=== PATIENT | male | born 2005 | race Caucasian/White ===

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

== ENCOUNTER 2024-08-24 21:47 | Emergency (ER) | payer OTHER, SELFPAY ==
[2024-08-24 21:51] VITALS: BP 130/60; PULSE 92; O2SAT 94
[2024-08-24 22:26] VITALS: BP 101/52; PULSE 79; RESP 18; TEMP 36.7; O2SAT 100; BMI 53.4
== END 2024-08-25 01:32 | disposition left against medical advice (07) ==
PROVIDERS: Emergency Provider Emergency Medicine
DX: R51.9 Headache, unspecified (principal)
CPT/HCPCS: 99281

== ENCOUNTER 2024-10-22 18:28 | Emergency (ER) | payer MEDICAID, SELFPAY ==
--- NOTE | ~2024-10-22 | XR_ITS ---
CLINICAL HISTORY: pain s p slip fall Left knee four views Comparison: None Findings: No acute fracture or dislocation noted. No significant joint effusion identified. No soft tissue foreign body. Impression: No acute bony abnormality This document has been electronically signed by: Krzysztof Petit MD on 10/22/2024 20:18:19
[2024-10-22 19:39] VITALS: BP 116/53; PULSE 72; RESP 18; TEMP 36.2; O2SAT 100; BMI 31.3
--- NOTE | 2024-10-22 19:39 | ED_ITS ---
HPI - Extremity Injury (Lower) General Chief Complaint: Extremity Injury, Lower Stated Complaint: Lt knee injury Related Data Previous Rx's ?Medication ?Instructions ?Recorded amoxicillin 875 mg-potassium 1 tab PO BID 7 days #14 tabs 06/16/23 clavulanate 125 mg tablet ciprofloxacin 0.3 %-dexamethasone 4 drp otic (ears) BID 7 days #7.5 06/16/23 0.1 % ear drops,suspension mL (Ciprodex) ibuprofen 600 mg tablet 600 mg PO Q6H PRN pain #20 tabs 10/23/24 Allergies Allergy/AdvReac Type Severity Reaction Status Date / Time No Known Allergies Allergy Verified 10/23/24 15:19 PMFSH Family History Family History Mother No problems noted. Social History Social History Household Members: Family Advance Directives: No Advance Directives Information Provided: No Do you have a plan to hurt others: No Plan Physical Exam Vital Signs: Vital Signs: Last Vital Signs Temp 97.2 F 10/22/24 19:39 Pulse 72 10/22/24 19:39 Resp 18 10/22/24 19:39 BP 116/53 L 10/22/24 19:39 Pulse Ox 100 10/22/24 19:39 O2 Del Method Room Air 10/22/24 19:39 BMI result Body Mass Index 31.3 Course Course Course Narrative: This is a Rapid Medical Exam performed in triage by Xin Toscano PA-C. Full HPI, ROS and PE to be performed by primary ED provider. 19yo M w/pmhx obesity presenting to the ED c/o L knee pain s/p mechanical slip & fall on black ice [employer]. denies head trauma or LOC PE: R knee w/diffuse ttp. limited full extension 2/2 pain. NV intact distally Plan: XRs Discharge Plan Discharge Clinical Impression: Knee pain Patient Disposition: Left W/O Completing Treatment Prescriptions: No Action amoxicillin-pot clavulanate 875-125 mg tablet 1 tab PO BID 7 Days Qty: 14 0RF ciprofloxacin-dexamethasone [Ciprodex] 0.3-0.1 % drops,suspension 4 drp otic (ears) BID 7 Days Qty: 7.5 0RF ibuprofen 600 mg tablet 600 mg PO Q6H PRN (Reason: pain) Qty: 20 0RF Discharge Date/Time: 10/22/24 20:46
== END 2024-10-22 20:46 | disposition left against medical advice (07) ==
PROVIDERS: Emergency Provider Emergency Medicine
DX: S89.92XA Unspecified injury of left lower leg, initial encounter (principal); M25.562 Pain in left knee; W00.0XXA Fall on same level due to ice and snow, initial encounter; Y93.89 Activity, other specified; Y92.89 Other specified places as the place of occurrence of the external cause; Y99.8 Other external cause status
CPT/HCPCS: 73564; 99281; 99283

== ENCOUNTER → 2024-10-22 19:41 | Outpatient (BNV) | payer SELFPAY | PROVIDERS: Emergency Provider Emergency Medicine; Visit Provider Radiology Diagnostic Radiology | DX: M25.562 Pain in left knee (principal) | CPT/HCPCS: 73564 ==

== ENCOUNTER 2024-11-14 21:24 | Emergency (ER) | payer OTHER, SELFPAY ==
--- NOTE | ~2024-11-14 | XR_ITS ---
CLINICAL HISTORY: pain, swelling 4 view left knee Comparison: CR - XR KNEE LT 4V - 10/22/24 19:57 EST Findings: No acute fractures or dislocations. No cortical destruction of the bone. Probable small to moderate left suprapatellar effusion. No radiopaque foreign body. IMPRESSION: 1. No acute fracture or dislocation injury identified at the left knee. No radiographic evidence for active osteomyelitis. 2. Probable small to moderate left suprapatellar effusion. This document has been electronically signed by: Adam Acuña MD on 11/14/2024 22:09:52
[2024-11-14 21:33] VITALS: BP 126/70; BP 144/69; PULSE 77; PULSE 83; RESP 16; TEMP 36.6; O2SAT 97; O2SAT 99; BMI 55.5
--- NOTE | 2024-11-14 22:53 | ED_ITS ---
HPI - General Adult General Chief complaint: Extremity Problem Stated complaint: L knee pain Time Seen by Provider: 11/14/24 22:53 History of Present Illness ED Provider: Arelis BENTON narrative: The patient is a 19-year-old male who presents with a left knee injury. He injured his left knee a few weeks ago as well. He was here on October 22, a proximally 3 weeks ago, after slipping on ice and landing on his right knee. He had a negative x-ray at that time. He was discharged with recommendations to use ice packs, an Eugenio bandage, and ibuprofen. He had improved significantly. Today he was at home mopping the floor. He slipped on the wet floor and landed on his left knee. He says he landed with all his weight on the left knee. He again has pain in the knee. He feels the pain is worse this time than the previous time. He also feels that the knee is more swollen on this occasion than previously. He does not have any symptoms in the foot. He has no numbness or tingling in the foot. Related Data Previous Rx's ?Medication ?Instructions ?Recorded amoxicillin 875 mg-potassium 1 tab PO BID 7 days #14 tabs 06/16/23 clavulanate 125 mg tablet ciprofloxacin 0.3 %-dexamethasone 4 drp otic (ears) BID 7 days #7.5 06/16/23 0.1 % ear drops,suspension mL (Ciprodex) ibuprofen 600 mg tablet 600 mg PO Q6H PRN pain #20 tabs 10/23/24 ibuprofen 400 mg tablet 400 mg PO Q6H PRN pain #14 tabs 11/15/24 Allergies Allergy/AdvReac Type Severity Reaction Status Date / Time No Known Allergies Allergy Verified 11/14/24 21:36 Review of Systems Review of Systems: Yes all other systems are reviewed and are negative [facility] Family History Family History Mother No problems noted. Social History Social History Household Members: Family Advance Directives: No Advance Directives Information Provided: No Physical Exam ED Vital Signs: Vital Signs - 24 hr 11/14/24 21:33 11/15/24 00:18 Temperature 97.8 F 97.8 F Pulse Rate 83 83 Respiratory Rate 16 16 Blood Pressure 144/69 H 144/69 H Pulse Oximetry 97 97 Oxygen Delivery Method Room Air Room Air BMI result Body Mass Index 55.5 Const Other: The patient has a large 19-year-old. He is 5 ft 6, 156 kg. BMI 55.5. He is awake and alert, pleasant and cooperative. HENMT Other: No signs of trauma to the head or the face Eyes General: appearance normal, both eyes and all related structures Neck Other: Moving his neck easily Resp Effort & Inspection: normal respiratory effort Skin Other: Skin is intact Neuro Other: The patient is awake and alert with a normal mental status. He has normal sensation in the left foot and can use the toes and the ankle normally. Extrem Other: The patient has swelling to the left knee consistent with a knee effusion. He is able to bend the knee and extend the knee somewhat. Quadriceps tendon and patellar tendon seem intact. No gross instability to the knee ligaments. Medications Administered Discontinued Medications Generic Name Dose Route Start Last Admin Trade Name Connorq PRN Reason Stop Dose Admin Acetaminophen 975 mg 11/14/24 23:00 11/14/24 23:08 Acetaminophen 325 Mg Tablet PO 11/14/24 23:01 975 mg ONCE ONE Administration Ketorolac Tromethamine 30 mg 11/14/24 23:00 11/14/24 23:07 Ketorolac Tromethamine 30 Mg/Ml Vial IM 11/14/24 23:01 30 mg ONCE ONE Administration Medical Decision Making Medical Decision Making [facility] Narrative: The patient presents with an acute knee injury when he slipped and fell while at home mopping the floor. He slipped on a slippery floor. He came down directly on his knee. He is quite heavy. On exam he seems to have a joint effusion. On x-ray a suprapatellar effusion was evident. No apparent fracture. No obvious ligamentous or tendinous injury. I do not have a high suspicion for an occult fracture. The patient will be placed in a knee immobilizer. He will be given crutches. He will be advised to rest and keep the leg elevated. He should follow up with Orthopedics given his degree of effusion. Discharge Plan Discharge Clinical Impression: Contusion of left knee, Effusion of left knee Patient Disposition: Home, Self-Care Additional Instructions: Please wear the knee immobilizer to keep the knee still. Use the crutches to keep weight off the knee. As much as you can stay off your left leg. Rest the leg and keep it elevated. Use ice packs to the knee several times a day for the next few days. You may use the ibuprofen prescribed as needed for pain. You may also take 1000 mg of acetaminophen (2 extra-strength tablets) per dose. You may do this up to 3 times per day. Your x-ray does not show a fracture but it does show some fluid in the joint from the injury. Please contact the orthopedic office on Sunday for a follow up appointment in the next week or two. Return to the emergency room if significantly worse. Prescriptions: New ibuprofen 400 mg tablet 400 mg PO Q6H PRN (Reason: pain) Qty: 14 0RF No Action amoxicillin-pot clavulanate 875-125 mg tablet 1 tab PO BID 7 Days Qty: 14 0RF ciprofloxacin-dexamethasone [Ciprodex] 0.3-0.1 % drops,suspension 4 drp otic (ears) BID 7 Days Qty: 7.5 0RF ibuprofen 600 mg tablet 600 mg PO Q6H PRN (Reason: pain) Qty: 20 0RF Referrals: [facility] [Provider Group] (Left knee injury with effusion) Interventions: ED Discharge Assessment Last Done: 11/15/24 00:18 Discharge Date/Time: 11/15/24 00:19 Print Language: Kinyarwanda
[2024-11-14] MEDS: Ketorolac Tromethamine 30 MG/ML VIAL IM (23:07)
[2024-11-14] MEDS: Acetaminophen 325 MG TABLET 975 MG PO (23:08)
[2024-11-15 00:18] VITALS: BP 144/69; PULSE 83; RESP 16; TEMP 36.6; O2SAT 97
== END 2024-11-15 00:19 | disposition home or self-care (01) ==
PROVIDERS: Emergency Provider Emergency Medicine
DX: S80.02XA Contusion of left knee, initial encounter (principal); M25.462 Effusion, left knee; M25.562 Pain in left knee; W01.0XXA Fall on same level from slipping, tripping and stumbling without subsequent striking against object, initial encounter; Y93.9 Activity, unspecified; Y92.89 Other specified places as the place of occurrence of the external cause; Y99.8 Other external cause status
CPT/HCPCS: 29505; 73564; 96372; 99284; J1885

== ENCOUNTER → 2024-11-14 21:50 | Outpatient (BNV) | payer OTHER, SELFPAY | PROVIDERS: Emergency Provider Emergency Medicine; Visit Provider Radiology Diagnostic Radiology | DX: M25.562 Pain in left knee (principal); M79.89 Other specified soft tissue disorders | CPT/HCPCS: 73564 ==